=== PATIENT | male | born 1960 | race American Indian/Alaskan Native ===

== ENCOUNTER 2017-01-14 12:55 | Emergency (ER) | payer OTHER ==
[2017-01-14 14:22] LABS: Hematocrit 44.6 % (35.5-45.6); Hemoglobin 14.5 gm/dl (11.8-15.2); Mean Corpuscular HGB Conc 33 % (32-34); Mean Corpuscular Hemoglobin 26 pg (28-32); Mean Corpuscular Volume 81 fl (84-94); Platelet Count 226 K/mm3 (140-440); Red Blood Count 5.54 M/mm3 (3.65-5.03); Red Cell Distribution Width 14.6 % (13.2-15.2); White Blood Count 9.3 K/mm3 (4.5-11.0)
[2017-01-14 14:24] LABS: Anion Gap 20 mmol/L; BUN/Creatinine Ratio 7.69; Blood Urea Nitrogen 10 mg/dL (9-20); Calcium 9.4 mg/dL (8.4-10.2); Carbon Dioxide 27 mmol/L (22-30); Chloride 97.2 mmol/L (98-107); Glucose 191 mg/dL (75-100); Potassium 3.7 mmol/L (3.6-5.0); Sodium 140 mmol/L (137-145)
[2017-01-14] MEDS ORDERED: CATAPRES PO ONE ×3 (20:07→21:15)
[2017-01-14] MEDS ORDERED: CATAPRES ONE (20:07)
--- NOTE | 2017-01-14 20:27 | XRay Report ---
FINAL REPORT EXAM: XR ANKLE 3 LT HISTORY: pain on left ankle medial TECHNIQUE: AP, lateral, and oblique views of the left ankle PRIORS: None. FINDINGS: There is no evidence for acute fracture or dislocation. There is moderate swelling along the medial malleolus. Small amount of swelling anteriorly is also seen. No radiopaque foreign bodies are seen. The ankle mortise is intact. Bony mineralization is normal and joint spaces are maintained. IMPRESSION: No acute bony abnormality noted. Moderate medial swelling.
[2017-01-14 22:44] VITALS: BP 177/101
--- NOTE | 2017-01-14 23:03 | Emergency Department Report ---
Entered by MARGOT BAR, acting as scribe for TAMMY RAMIREZ PA. ED General Adult HPI - General Chief complaint: Extremity Injury, Lower Stated complaint: LEFT ANKLE SWELLING/PAIN Time Seen by Provider: 01/14/17 19:18 Source: patient Mode of arrival: Ambulatory Limitations: No Limitations - History of Present Illness Initial comments: 56 year old male presents to the ED for evaluation of swelling and pain to medial aspect of left ankle for 3 days. Patient reports previous similar episode 2 weeks ago that resolved without medical intervention. He notes pain improves with rest and worsens with ambulation and weight bearing. Pain was mildly relieved with Ibuprofen but last dose was 2 days ago. Patient also c/o cough since yesterday abut denies sore throat and nasal congestion. He reports PMHx of HTN but notes he is not currently prescribed medication. He states he has an appointment for a physical on 01/31/2017 at the [facility]. Onset/Timin -: days(s) Location: left, lower extremity (medial aspect of ankle) Radiation: non-radiation Quality: constant Improves with: medication (ibuprofen), rest Worsens with: movement, other (weight bearing) Associated Symptoms: cough, other (left medial ankle swelling and pain, nasal congestion). denies: chest pain, fever/chills, headaches, nausea/vomiting, shortness of breath Treatments Prior to Arrival: NSAID (Ibuprofen) - Related Data Previous Rx's Medication Instructions Recorded Last Taken Type Hydrochlorothiazide [HCTZ] 25 mg PO QDAY #30 tablet 01/14/17 Unknown Rx amLODIPine [Norvasc] 5 mg PO DAILY #30 tab 01/14/17 Unknown Rx Allergies Allergy/AdvReac Type Severity Reaction Status Date / Time No Known Allergies Allergy Verified 01/14/17 20:12 ED Review of Systems Comment: All other systems reviewed and negative Constitutional: denies: chills, fever ENT: congestion (nasal). denies: ear pain, throat pain Respiratory: cough. denies: shortness of breath Cardiovascular: denies: chest pain Musculoskeletal: other (swelling and pain to medial aspect of left ankle. No injury or falls) Neurological: denies: headache ED Past Medical Hx - Past Medical History Previous Medical History?: No Hx Hypertension: Yes (Not currently prescribed medication) - Surgical History Past Surgical History?: No Additional Surgical History: HEART CATH,BILAT KNEE SURG - Family History Family history: hypertension - Social History Smoking Status: Never Smoker Substance Use Type: None - Medications Home Medications: Home Medications Medication Instructions Recorded Confirmed Last Taken Type Hydrochlorothiazide [HCTZ] 25 mg PO QDAY #30 tablet 01/14/17 Unknown Rx amLODIPine [Norvasc] 5 mg PO DAILY #30 tab 01/14/17 Unknown Rx ED Physical Exam - General Limitations: No Limitations General appearance: alert, in no apparent distress - Head Head exam: Present: atraumatic, normocephalic - Respiratory Respiratory exam: Present: normal lung sounds bilaterally. Absent: respiratory distress, wheezes, rales, rhonchi, chest wall tenderness - Cardiovascular Cardiovascular Exam: Present: regular rate, normal rhythm, normal heart sounds. Absent: systolic murmur, diastolic murmur, rubs, gallop - Expanded Lower Extremity Exam Left Ankle exam: Present: full ROM, tenderness (medial aspect of left ankle). Absent : swelling, deformity - Neurological Exam Neurological exam: Present: alert, oriented X3 - Psychiatric Psychiatric exam: Present: normal affect, normal mood - Skin Skin exam: Present: warm, dry, intact. Absent: rash ED Course Vital Signs 01/14/17 01/14/17 13:28 20:01 Temperature 98.2 F 98.2 F Pulse Rate 94 H 89 Respiratory 18 22 Rate Blood Pressure 200/106 Blood Pressure 204/100 [Left] Blood Pressure 209/109 [Right] O2 Sat by Pulse 100 97 Oximetry ED Medical Decision Making - Lab Data Result diagrams: 01/14/17 13:45 01/14/17 13:45 - Radiology Data Radiology results: report reviewed, image reviewed No acute bony abnormality noted. Moderate medial swelling. - Medical Decision Making Patient's been evaluated by this provider fast track. Pain medication was offered to patient he declined since he reports pain is only with bearing weight. X-ray was done which showed no acute bony abnormality noted only moderate medial swelling. We will place patient in a splint and have him follow -up with his primary care provider. We will give him Tylenol for pain. His blood pressure was elevated we have given the patient clonidine 0.1 mg by mouth we will reevaluate patient's pressure. An discharge patient on blood pressure medicine which will consist of hydrochlorothiazide 25 mg and amlodipine 5 mg. And verbalized understanding ED Disposition Clinical Impression: Elevated blood pressure Left ankle sprain Qualifiers: Encounter type: initial encounter Involved ligament of ankle: unspecified ligament Qualified Code(s): S93.402A - Sprain of unspecified ligament of left ankle, initial encounter Disposition: DISCHARGED TO HOME OR SELFCARE Is pt being admited?: No Does the pt Need Aspirin: No Condition: Stable Instructions: DASH Eating Plan (ED), Low Sodium Diet (ED), Hypertension (ED), RICE Therapy (ED) Additional Instructions: Please take your blood pressure medicine as prescribed. Recommend fever have a blood pressure checked 3-5 days. Please keep your appointment for a physical for 01/31/2017. Where your splint and rest the ankle. Prescriptions: amLODIPine [Norvasc] 5 mg PO DAILY #30 tab Hydrochlorothiazide [HCTZ] 25 mg PO QDAY #30 tablet Referrals: PRIMARY CARE, [Primary Care Provider] - 3-5 Days [facility] [Outside] - 3-5 Days Forms: Work/School Release Form(ED) This documentation as recorded by the DIPIKA aguayo REBEKAH,accurately reflects the service I personally performed and the decisions made by me,TAMMY RAMIREZ PA.
== END 2017-01-14 23:00 | disposition home or self-care (01) ==
LOC: ED 12:55
DX: S93.402A Sprain of unspecified ligament of left ankle, initial encounter (principal); I10 Essential (primary) hypertension; X58.XXXA Exposure to other specified factors, initial encounter; Y93.89 Activity, other specified; Y99.9 Unspecified external cause status; Y92.89 Other specified places as the place of occurrence of the external cause
CPT/HCPCS: 36415; 80048; 85027

== ENCOUNTER 2018-05-08 17:08 | Emergency (ER) | payer OTHER ==
[2018-05-08 17:29] VITALS: BP 167/93
[2018-05-08] MEDS ORDERED: NORCO 7.5/325 PO ONE (21:21)
--- NOTE | 2018-05-08 21:30 | Emergency Department Report ---
- General Chief complaint: Skin/Abscess/Foreign Body Stated complaint: BOIL ON ANUS Time Seen by Provider: 05/08/18 20:43 Source: patient Mode of arrival: Ambulatory Limitations: No Limitations - History of Present Illness Initial comments: 57-year-old -[place] male with a past medical history of diabetes hypertension and high cholesterol comes in reporting 4 born near his anal area for the last 3 days. Patient reports he has had chills no fever pain is worse when he sits down he reports pain as a 9 out of 10. Patient reports that he's been doing warm compresses. Patient reports he is followed by Dr. Bell at the [facility]. MD complaint: abscess/boil -: days(s) (3) Severity scale (0 -10): 9 Quality: aching, sharp Consistency: constant Improves with: other (laying on side) Worsens with: other (sitting) Treatments Prior to Arrival: none - Related Data Home Medications Medication Instructions Recorded Confirmed Last Taken AtorvaSTATin [Lipitor] 20 mg PO QDAY 05/08/18 05/08/18 05/08/18 10:00 Hydralazine HCl 25 mg PO BID 05/08/18 05/08/18 05/08/18 10:00 Losartan [Cozaar] 100 mg PO QDAY 05/08/18 05/08/18 05/08/18 10:00 NIFEdipine [Adalat cc] 120 mg PO BID 05/08/18 05/08/18 05/08/18 10:00 glipiZIDE [Glipizide] 5 mg PO BID 05/08/18 05/08/18 05/08/18 10:00 Previous Rx's Medication Instructions Recorded Last Taken Type Cephalexin [Keflex] 500 mg PO BID #28 capsule 05/08/18 Unknown Rx traMADol [Ultram 50 MG tab] 50 mg PO Q6HR PRN #20 tablet 05/08/18 Unknown Rx Allergies Allergy/AdvReac Type Severity Reaction Status Date / Time No Known Allergies Allergy Verified 01/14/17 20:12 Abscess Boil HPI - HPI Chief Complaint: Skin/Abscess/Foreign Body Stated Complaint: BOIL ON ANUS Time Seen by Provider: 05/08/18 20:43 Duration: 3 Days Location: Perianal History: Yes Pain, No Fever, No Purulent Drainage, No Numbness, No Foreign Body , No Previous History, No Insect Bite Home Medications: Home Medications Medication Instructions Recorded Confirmed Last Taken AtorvaSTATin [Lipitor] 20 mg PO QDAY 05/08/18 05/08/18 05/08/18 10:00 Hydralazine HCl 25 mg PO BID 05/08/18 05/08/18 05/08/18 10:00 Losartan [Cozaar] 100 mg PO QDAY 05/08/18 05/08/18 05/08/18 10:00 NIFEdipine [Adalat cc] 120 mg PO BID 05/08/18 05/08/18 05/08/18 10:00 glipiZIDE [Glipizide] 5 mg PO BID 05/08/18 05/08/18 05/08/18 10:00 Previous Rx's Medication Instructions Recorded Last Taken Type Cephalexin [Keflex] 500 mg PO BID #28 capsule 05/08/18 Unknown Rx traMADol [Ultram 50 MG tab] 50 mg PO Q6HR PRN #20 tablet 05/08/18 Unknown Rx Allergies/Adverse Reactions: Allergies Allergy/AdvReac Type Severity Reaction Status Date / Time No Known Allergies Allergy Verified 01/14/17 20:12 ED Review of Systems ROS: Stated complaint: BOIL ON ANUS Other details as noted in HPI Skin: lesions ( on rectum) ED Past Medical Hx - Past Medical History Previous Medical History?: Yes Hx Hypertension: Yes Hx Diabetes: Yes - Surgical History Past Surgical History?: Yes Additional Surgical History: HEART CATH,BILAT KNEE SURG, Colonoscopy - Social History Smoking Status: Never Smoker Substance Use Type: Alcohol, Prescribed - Medications Home Medications: Home Medications Medication Instructions Recorded Confirmed Last Taken Type AtorvaSTATin [Lipitor] 20 mg PO QDAY 05/08/18 05/08/18 05/08/18 10:00 History Cephalexin [Keflex] 500 mg PO BID #28 capsule 05/08/18 Unknown Rx Hydralazine HCl 25 mg PO BID 05/08/18 05/08/18 05/08/18 10:00 History Losartan [Cozaar] 100 mg PO QDAY 05/08/18 05/08/18 05/08/18 10:00 History NIFEdipine [Adalat cc] 120 mg PO BID 05/08/18 05/08/18 05/08/18 10:00 History glipiZIDE [Glipizide] 5 mg PO BID 05/08/18 05/08/18 05/08/18 10:00 History traMADol [Ultram 50 MG tab] 50 mg PO Q6HR PRN #20 tablet 05/08/18 Unknown Rx ED Physical Exam - General Limitations: No Limitations General appearance: alert, in no apparent distress - Eye Eye exam: Present: EOMI - Rectal Rectal exam: Present: tenderness - Neurological Exam Neurological exam: Present: alert, oriented X3 - Psychiatric Psychiatric exam: Present: normal affect, normal mood - Expanded Skin Exam Expanded Type of lesion: Present: abscess Distribution of rash: other Description of rash: Present: size (2cm x 2cm), tenderness, erythematous, swelling ED Course Vital Signs 05/08/18 17:26 Temperature 98.2 F Pulse Rate 108 H Respiratory 20 Rate Blood Pressure 167/93 O2 Sat by Pulse 99 Oximetry ED Medical Decision Making - Medical Decision Making Patient has been evaluated by this provider fast track. Patient was given pain medication in fast track. Patient has a perianal abscess with a history of diabetes. I will place patient on 2 weeks of antibiotics and pain medication. Discussed the patient that he needs to follow up with his primary care provider which is Dr. Bell at the [place] [facility]. Patient verbalizes understanding. Critical care attestation.: If time is entered above; I have spent that time in minutes in the direct care of this critically ill patient, excluding procedure time. ED Disposition Clinical Impression: Anal abscess Disposition: DC-01 TO HOME OR SELFCARE Is pt being admited?: No Does the pt Need Aspirin: No Condition: Stable Instructions: Abscess (ED) Additional Instructions: Please take antibiotics as prescribed. Pain medication as needed. Please follow up to primary care provider in the next 3-5 days for follow-up. Prescriptions: Cephalexin [Keflex] 500 mg PO BID #28 capsule traMADol [Ultram 50 MG tab] 50 mg PO Q6HR PRN #20 tablet PRN Reason: Pain Referrals: PRIMARY CARE, [Primary Care Provider] - 3-5 Days Forms: Work/School Release Form(ED)
== END 2018-05-08 22:15 | disposition home or self-care (01) ==
LOC: ED 17:08
DX: K61.0 Anal abscess (principal); I10 Essential (primary) hypertension; E11.9 Type 2 diabetes mellitus without complications; E78.00 Pure hypercholesterolemia, unspecified
CPT/HCPCS: 99282; 99283